=== PATIENT | male | born 1965 | race Caucasian/White ===

== ENCOUNTER 2021-10-25 13:28 | Outpatient (CLI) | payer OTHER, SELFPAY ==
[2021-10-25 21:32] LABS: Albumin* 4.2 g/dL (3.3-5.0); Chloride* 105 mmol/L (96-114)
[2021-10-25 21:33] LABS: Potassium* 4.3 mmol/L (3.6-5.1); Sodium* 137 mmol/L (135-149)
[2021-10-25 21:37] LABS: Alanine Aminotransferase* 22 U/L (4-50); Alkaline Phosphatase* 66 U/L (40-150); Aspartate Amino Transferase* 32 U/L (12-35); Bilirubin Total* 1.1 mg/dL (0.1-1.5); Blood Urea Nitrogen* 20 mg/dL (7-30); Carbon Dioxide* 24 mmol/L (20-32); Cholesterol* 136 mg/dL (90-199); Creatinine* 1.1 mg/dL (0.5-1.5); Estimated Glomerular Filt Rate 80 ml/min; Glucose* 87 mg/dL (60-115); HDL Cholesterol* 52 mg/dL (>=40); LDL Cholesterol Calculated 67 mg/dL (<100); Total Protein* 6.8 g/dL (6.0-8.3); Triglycerides* 86 mg/dL (40-149)
[2021-10-25 21:51] LABS: Creatinine Urine 106.2 mg/dL
[2021-10-25 21:56] LABS: Microalbumin Creatinine Ratio 0 mg/g (0-30); Microalbumin Urine < 1 mg/dL
== END 2021-10-25 13:29 | disposition home or self-care (01) ==
PROVIDERS: PCP Family Medicine; Visit Provider Family Medicine
DX: Z00.00 Encounter for general adult medical examination without abnormal findings (principal); E03.9 Hypothyroidism, unspecified; I10 Essential (primary) hypertension; K21.9 Gastro-esophageal reflux disease without esophagitis
CPT/HCPCS: 80053; 80061; 82043; 82570; 84443

== ENCOUNTER 2022-11-02 08:27 | Outpatient (CLI) | payer OTHER, SELFPAY | END 2022-11-02 08:28 | disposition home or self-care (01) | PROVIDERS: PCP Family Medicine; Visit Provider Family Medicine | DX: I10 Essential (primary) hypertension (principal); E03.9 Hypothyroidism, unspecified; E66.01 Morbid (severe) obesity due to excess calories; R53.83 Other fatigue; Z13.6 Encounter for screening for cardiovascular disorders | CPT/HCPCS: 80053; 80061; 82043; 82570; 84443 ==

== ENCOUNTER 2024-02-09 15:15 | Outpatient (CLI) | payer OTHER, SELFPAY | END 2024-02-09 15:16 | disposition home or self-care (01) | LOC: NFLDREF 02-16 01:20 | PROVIDERS: PCP Family Medicine; Referring Provider Family Medicine; Visit Provider Family Medicine | DX: E03.9 Hypothyroidism, unspecified (principal); I10 Essential (primary) hypertension; Z11.59 Encounter for screening for other viral diseases; Z13.220 Encounter for screening for lipoid disorders; Z12.5 Encounter for screening for malignant neoplasm of prostate | CPT/HCPCS: 80053; 80061; 82043; 82570; 84443; 86803; G0103 ==